=== PATIENT | male | born 1955 | race Caucasian/White ===

== ENCOUNTER → 2019-12-08 | Outpatient (CLI) | payer OTHER ==
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
== END | disposition home or self-care (01) ==
LOC: RADXRMAIN 09:59
PROVIDERS: ATTEND Family Medicine
DX: M25.562 Pain in left knee (principal); M25.552 Pain in left hip; M54.5 Low back pain
CPT/HCPCS: 72110; 73502